=== PATIENT | female | born 1990 | race Hispanic/Latino ===

== ENCOUNTER 2019-05-14 14:15 | Outpatient (RCR) | payer OTHER, SELFPAY ==
[2019-05-12 14:46] LABS: Beta HCG Quantitative 16.63 mIU/ML
== END 2019-08-10 23:59 | disposition home or self-care (01) ==
LOC: ANHLAB 14:15
PROVIDERS: Visit Provider Obstetrics & Gynecology
DX: N91.2 Amenorrhea, unspecified (principal)
CPT/HCPCS: 36415; 84702; 86850; 86900; 86901

== ENCOUNTER 2020-01-24 12:53 | Outpatient (RCR) | payer OTHER, SELFPAY | END 2020-04-21 23:59 | disposition home or self-care (01) | LOC: ANHLAB 12:53 | PROVIDERS: Visit Provider Obstetrics & Gynecology Gynecology | DX: O26.21 Pregnancy care for patient with recurrent pregnancy loss, first trimester (principal); Z3A.00 Weeks of gestation of pregnancy not specified | CPT/HCPCS: 36415; 84702 ==

== ENCOUNTER 2020-01-30 14:18 | Outpatient (CLI) | payer OTHER, SELFPAY ==
--- NOTE | ~2020-01-30 | US_ITS ---
EXAMINATION: US OB <=14 wk fetus w TV DATE: 01/30/2020 15:16 INDICATION: Prior spontaneous . First trimester . TECHNIQUE: Real-time pelvic ultrasound utilizing both a transvaginal and transabdominal probe was pe rformed. The interpreting radiologist was not present for the study. COMPARISON: None. FINDINGS: The uterus measures 8.3 x 4.9 x 6.0 cm. There is an intrauterine gestational sac. A yolk sac is iden tified but no definitive pole yet apparent. The mean sac diameter measures 12.5 mm, which corre lates with an estimated gestational age of 6 weeks and 0 days. The right ovary measures 3.0 x 1.5 x 1.3 cm. The left ovary measures 2.8 x 1.9 x 2.7 cm. 9 x 8 mm lik brien corpus luteum cyst in the left ovary. A few tiny likely follicles at the periphery of the right o vary. Vascular flow is identified in both ovaries on color Doppler. There is no free fluid in the pel vis. IMPRESSION: 1. Single intrauterine gestational sac with single yolk sac but no discernible pole yet apparen t likely due to early stage of . 2. Gestational age by ultrasound of 6 weeks 0 day(s) +/- 4 day(s) with ultrasound estimated date of delivery (JAXON) of 09/24/2020. Reviewed, dictated and finalized at location A. IMPRESSION: 1. Single intrauterine gestational sac with single yolk sac but no discernible pole yet apparent likely due to early stage of . 2. Gestational age by ultrasound of 6 weeks 0 day(s) +/- 4 day(s) with ultraso und estimated date of delivery (JAXON) of 09/24/2020.
== END 2020-01-30 14:19 | disposition home or self-care (01) ==
PROVIDERS: Visit Provider Obstetrics & Gynecology
DX: O26.21 Pregnancy care for patient with recurrent pregnancy loss, first trimester (principal); Z3A.01 Less than 8 weeks gestation of pregnancy
CPT/HCPCS: 76801; 76817

== ENCOUNTER 2020-02-13 10:12 | Outpatient (CLI) | payer OTHER, SELFPAY ==
--- NOTE | ~2020-02-13 | US_ITS ---
EXAMINATION: US OB <= 14 weeks fetus DATE: 02/13/2020 12:54 INDICATION: First trimester viability assessment TECHNIQUE: Real-time pelvic transabdominal and transvaginal ultrasound was performed. COMPARISON: 01/30/2020 FINDINGS: The uterus measures 10.8 x 6 x 5.1 cm. There is an intrauterine gestational sac. A yolk sa c is identified. heart motion is identified measuring 150 beats per minute (bpm) by M-mode Dopp ler. The crown rump length measures 11 mm , which correlates with an estimated gestational age of 7 weeks and 2 day(s) (+/-) 5 day(s). The right ovary measures 2.5 x 1.5 x 1.7 cm. The left ovary measures 3.2 x 2.2 x 2.0 cm. There is nor mal vascular flow in the ovaries. There is no free fluid in the pelvis. IMPRESSION: 1. Live intrauterine with an estimated gestational age of 7 weeks and 2 day(s) (+/-) 5 day( s) and an estimated delivery date of 09/29/2020. Reviewed, dictated and finalized at location B. IMPRESSION: 1. Live intrauterine with an estimated gestational age of 7 weeks and 2 day(s) (+/-) 5 day(s) and an estimated delivery date of 09/29/2020.
== END 2020-02-13 10:13 | disposition home or self-care (01) ==
PROVIDERS: PCP Obstetrics & Gynecology Gynecology; Visit Provider Obstetrics & Gynecology
DX: O36.80X0 Pregnancy with inconclusive fetal viability, not applicable or unspecified (principal); Z3A.01 Less than 8 weeks gestation of pregnancy
CPT/HCPCS: 76801

== ENCOUNTER 2020-08-28 15:30 | Observation (INO) | payer OTHER, SELFPAY ==
[2020-08-28 15:28] VITALS: BP 115/72; PULSE 88; RESP 16; TEMP 36.6; O2SAT 99
[2020-08-28 15:45] VITALS: BP 124/86; PULSE 94
[2020-08-28 16:00] VITALS: BP 115/75; PULSE 92
--- NOTE | 2020-08-28 16:06 | PC.NURSE ---
1600- Discussing with patient history and gathering info on records. Patient states that she sees a nurse at [facility] and is supposed to see a delivering doctor on Wednesday. Patient does not know the last name of the nurse she sees or the name of the doctors office. Patient states she was in too much pain to continue driving to [place] to see her doctor. Patient laying quietly in bed at this time. 1605- Spoke with Dr. Bobo, walk in doctor for OB. NSTand patient symptoms/history reviewed with Dr. Bobo. Patient having irregular contractions with irritability. Reactive NST.
[2020-08-28 16:15] VITALS: BP 112/74; PULSE 81
[2020-08-28 16:24] VITALS: BMI 30.4
--- NOTE | 2020-08-28 16:24 | OBADM ---
This patient, Elina Mendenhall, admitted to the OB room [facility] for observation. Patient/family oriented to hospital policies and general routines including ID bracelet, bed and alarms, visiting hours, pain management, procedures, bathroom and other care routines, personal items, smoking policy, room service/diet, and visiting hours. Patient/Family are encouraged to report perceived risks to care and to ask questions if they do not understand what they are told or what they should do.
--- NOTE | 2020-09-02 10:04 | PM.OBTRLD ---
OB - Triage/Final Diagnosis Visit Information Comments/Additional reasons for admission: I have assessed the risk for this patient, Elinara Claudia Mendenhall, and determined that she would benefit from observation care. Final Diagnosis (1) Pelvic pain affecting : Code(s): O26.899 - Other specified related conditions, unspecified trimester; R10.2 - Pelvic and perineal pain Status: Acute
== END 2020-08-28 16:29 | disposition home or self-care (01) ==
LOC: ANHLDR 15:35 → ANHOBPP 15:37
PROVIDERS: Admitting Provider Obstetrics & Gynecology; PCP Obstetrics & Gynecology Gynecology; Visit Provider Obstetrics & Gynecology
DX: O26.893 Other specified pregnancy related conditions, third trimester (principal); R10.2 Pelvic and perineal pain; Z3A.35 35 weeks gestation of pregnancy
CPT/HCPCS: 59025; G0378; G0379

== ENCOUNTER 2023-09-27 17:04 | Outpatient (CLI) | payer OTHER, SELFPAY ==
--- NOTE | ~2023-09-27 | XR_ITS ---
XR lumbar spine 2-3V 09/27/2023 17:22 Indication: Low back pain for 6 months Procedure: 3 views lumbar spine Comparison: No prior studies for comparison. Findings: Vertebral body heights are maintained. No fracture, subluxation or dislocation. No evidence for spondylolisthesis. No significant disc narrowing. Sacral foramen are symmetric. Impression: 1: No significant abnormality of the lumbar spine. Reviewed, dictated and finalized at location B. Impression: 1: No significant abnormality of the lumbar spine.
== END 2023-09-27 17:05 | disposition home or self-care (01) ==
LOC: ANHIMG 17:05
PROVIDERS: PCP Obstetrics & Gynecology Gynecology; Visit Provider Physician Assistant
DX: M54.50 Low back pain, unspecified (principal)
CPT/HCPCS: 72100

== ENCOUNTER 2023-12-21 16:44 | Emergency (ER) | payer OTHER, SELFPAY ==
--- NOTE | 2023-12-21 16:51 | ED.URI ---
HPI - URI/Sore Throat General Chief Complaint: Urogenital-Female Stated Complaint: Bodyaches/Sore Throat Time Seen by Provider: 12/21/23 16:51 Source: patient, family, RN notes reviewed and old records reviewed Mode of arrival: ambulatory Limitations: no limitations History of Present Illness HPI Narrative: Patient presents with body aches, fatigue, sore throat, runny nose. She reports that symptoms have been present since this morning. She is not taking anything for her symptoms she voices no other concerns or complaints. She denies any shortness breath Related Data Home Medications Medication Instructions Recorded Confirmed No Home Medications 12/21/23 12/21/23 Allergies Allergy/AdvReac Type Severity Reaction Status Date / Time No Known Allergies Allergy Verified 12/21/23 16:46 Review of Systems Review of Systems: All systems reviewed & are unremarkable except as noted in HPI and below Constitutional: Constitutional: Reports no additional constitutional complaints ENT: Reports system reviewed and no additional complaints, except as documented Cardiovascular: Cardiovascular: Reports no additional cardiovascular complaints Respiratory: Respiratory: Reports no additional respiratory complaints Gastrointestinal: Gastrointestinal: Reports no additional gastrointestinal complaints PMFSH Comments At the time of my signature, I reviewed and agree with the nursing past medical, surgical, social, and family history. There is no relevant family history pertinent to the patient complaint. Exam Const: General: cooperative, no acute distress, alert and awake Orientation/consciousness: oriented to person, oriented to place and oriented to time HENMT: Head: normal to inspection Resp: Effort & Inspection: normal respiratory effort and able to speak in complete sentences Auscultation: clear to auscultation bilaterally, no crackles, no rales, no rhonchi and no wheezes Cardio: Palpation: normal PMI Rate: regular rate Rhythm: regular rhythm Heart sounds: S1 normal heart sound present and S2 normal heart sound present Neuro: General: oriented to person, oriented to place and oriented to time Cranial nerves: Yes CN's II-XII intact bilaterally Psych: Appearance: grossly normal Thought process: Normal thought process present Insight: Good insight present (Psych) Judgement: Good judgement present (Psych) Course Course Level of Care: Express Care Visit Vital Signs Vital signs: Vital Signs Temperature 99.1 F 12/21/23 17:00 Pulse Rate 102 H 12/21/23 17:00 Respiratory Rate 18 12/21/23 17:00 Blood Pressure 122/88 12/21/23 17:00 Pulse Oximetry 100 12/21/23 17:00 Oxygen Delivery Room Air 12/21/23 17:00 Temperature 99.1 F 12/21/23 17:00 Pulse Rate 102 H 12/21/23 17:00 Respiratory Rate 18 12/21/23 17:00 Blood Pressure 122/88 12/21/23 17:00 Pulse Oximetry 100 12/21/23 17:00 Oxygen Delivery Room Air 12/21/23 17:00 Reviewed MDM - URI/Sore Throat MDM Narrative Medical decision making narrative: Patient with less than 24 hours of symptoms. Negative COVID, negative flu, negative strep, negative UA. Explained to patient that there is a possibility that she could be positive given that symptoms are so new. We did send a strep culture. Work note for couple of days. Emergency department for new or worse symptoms, follow-up with primary Differential Diagnosis Differential diagnosis: Likely upper respiratory infection, otitis media, sinusitis, viral infection, bronchitis, influenza and pharyngitis Medical Records Attestation: I reviewed the patient's medical records. Lab Data Attestation: I reviewed the patient's lab results. Labs: Lab Results 12/21/23 12/21/23 12/21/23 Range/Units 17:14 17:15 17:22 POC Urine Color Yellow POC Urine Clarity Clear POC Urine pH 7.0 POC Ur Specif [place] 1.015 POC Urine Protein Negative POC Ur Glucose (UA) Ne
[2023-12-21 17:00] VITALS: BP 122/88; PULSE 102; RESP 18; TEMP 37.3; O2SAT 100
[2023-12-21 17:15] LABS: EDSTREPNEGPOS1 Presumptive Negative
[2023-12-21 17:16] LABS: EDUAAPPEAR Clear; EDUABILI Negative; EDUABLOOD Negative; EDUACOLOR1 Yellow; EDUAGLUCOSE Negative; EDUAKETONE Negative; EDUALEUKO Negative; EDUANITRATE Negative; EDUAPROTEIN Negative; EDUASPGRAVITY 1.015; EDUAUROBILI 0.2
== END 2023-12-21 17:40 | disposition home or self-care (01) ==
PROVIDERS: Emergency Provider Nurse Practitioner Family; PCP Physician Assistant
DX: B34.9 Viral infection, unspecified (principal); Z20.822 Contact with and (suspected) exposure to COVID-19
CPT/HCPCS: 81003; 87081; 87426; 87880; 99213; G0463

== ENCOUNTER 2023-12-23 18:29 | Emergency (ER) | payer OTHER, SELFPAY ==
[2023-12-23 18:40] VITALS: BP 132/78; PULSE 80; RESP 20; TEMP 37; O2SAT 99
--- NOTE | 2023-12-23 19:07 | ED.URI ---
HPI - URI/Sore Throat General Chief Complaint: Upper Respiratory Infection Stated Complaint: throat hurts,runny nose Time Seen by Provider: 12/23/23 18:56 Source: patient and RN notes reviewed Mode of arrival: ambulatory Limitations: no limitations History of Present Illness HPI Narrative: Patient presents today complaining of a 2 day history of sore throat and nasal congestion. She currently rates her pain 6/10. She took a dose of amoxicillin that is not prescribed to her this morning. Patient was seen here at [facility] 2 days ago with a negative rapid strep. Culture is pending. Patient has tried no [id number] treatment prior to arrival. Related Data Home Medications Medication Instructions Recorded Confirmed No Home Medications 12/21/23 12/21/23 Allergies Allergy/AdvReac Type Severity Reaction Status Date / Time No Known Allergies Allergy Verified 12/21/23 16:46 Review of Systems Review of Systems: CONSTITUTIONAL: Denies body aches, fever, chills, or sweats. EYES: Denies visual changes, redness, or discharge. ENT: Denies rhinorrhea, or otalgia.+ sore throat, congestion CARDIOVASCULAR: Denies chest pain, palpitations, or edema. RESPIRATORY: Denies cough or dyspnea. GASTROINTESTINAL: Denies abdominal pain, nausea, vomiting, or diarrhea. GENITOURINARY: Denies dysuria or hematuria. SKIN: Denies rash, itching, or wounds. MUSCULOSKELETAL: Denies back pain, joint pain, or myalgia. NEUROLOGIC: Denies headache, numbness, tingling, or weakness. PSYCH: Denies depression or anxiety. PMFSH Comments At time of signature, I have reviewed and agree with nursing past medical, surgical, social and family history unless otherwise noted. Please see nursing chart for further information. There is no relevant family history pertinent to the presenting complaint Exam Narrative: GENERAL: Well-appearing, well-nourished, and in no acute distress. HEAD: Normocephalic, atraumatic. EYES: EOMI. No redness or drainage. Conjunctivae normal. ENT: Mucous membranes pink and moist. Nares mildly congested. No rhinorrhea. TMs normal bilaterally. Throat mildly erythematous without edema or exudate. Uvula midline. NECK: Normal AROM. Supple. No lymphadenopathy. CHEST: No respiratory distress. Clear to auscultation. HEART: Regular rate and rhythm. No murmur appreciated. EXTREMITIES: Normal range of motion. No edema. SKIN: Warm, dry, no rash. Capillary refill normal. Normal skin turgor. NEURO: No focal deficits. Alert and oriented x3. Gait steady. PSYCH: Normal affect. No signs of depression or anxiety. Course Course Level of Care: Express Care Visit Vital Signs Vital signs: Vital Signs Temperature 98.6 F 12/23/23 18:40 Pulse Rate 80 12/23/23 18:40 Respiratory Rate 20 12/23/23 18:40 Blood Pressure 132/78 12/23/23 18:40 Pulse Oximetry 99 12/23/23 18:40 Oxygen Delivery Room Air 12/23/23 18:40 Temperature 98.6 F 12/23/23 18:40 Pulse Rate 80 12/23/23 18:40 Respiratory Rate 20 12/23/23 18:40 Blood Pressure 132/78 12/23/23 18:40 Pulse Oximetry 99 12/23/23 18:40 Oxygen Delivery Room Air 12/23/23 18:40 Reviewed MDM - URI/Sore Throat MDM Narrative Medical decision making narrative: Discussed with patient the culture likely be back tomorrow and she will be notified of any positive results. Recommend starting some [id number] medication for symptom control. ED precautions given Differential Diagnosis Differential diagnosis: Likely upper respiratory infection, viral infection, pharyngitis and other (Strep throat) Critical Care Time Critical Care Time Critical Care Time: No Discharge Plan Discharge Clinical Impression: Pharyngitis Patient Disposition: Home, Self-Care Condition: Stable Instructions: Pharyngitis (ED) Additional Instructions: Your strep culture results should come back tomorrow in the afternoon, and you will be notified of any pos
== END 2023-12-23 19:09 | disposition home or self-care (01) ==
PROVIDERS: Emergency Provider Nurse Practitioner; PCP Physician Assistant
DX: J02.9 Acute pharyngitis, unspecified (principal)
CPT/HCPCS: 99211; G0463

== ENCOUNTER 2024-09-14 13:35 | Emergency (ER) | payer MEDICAID, SELFPAY ==
--- NOTE | 2024-09-14 13:37 | ED_ITS ---
HPI - Female Genitourinary General Chief complaint: Urogenital-Female Stated complaint: urinary issue Time Seen by Provider: 09/14/24 13:37 Source: patient Mode of arrival: ambulatory Limitations: no limitations History of Present Illness HPI Narrative: Elina is a 34-year-old female patient presenting to the clinic today with complaints of burning with urination x1 week. She reports she has tried drinking some cranberry juice and this has helped. Denies any fevers, chills, back pain, or abdomen pain. No nausea or vomiting Related Data Allergies Allergy/AdvReac Type Severity Reaction Status Date / Time No Known Allergies Allergy Verified 09/14/24 13:40 Review of Systems Review of Systems: Pertinent positives per HPI. Patient denies any fever, chills, rash, headache, visual changes, dizziness, cough, runny nose, sore throat, shortness of breath, chest pain, palpitations, nausea, vomiting, diarrhea, constipation, abdominal pain PMFSH Comments At the time of my signature, I reviewed and agree with the nursing past medical, surgical, social, and family history. There is no relevant family history pertinent to the patient complaint. Exam Narrative: General: Well-developed, well nourished, in no apparent distress. Head: Normocephalic, atraumatic. Cardio: Regular rate and rhythm, s1 and s2 normal, no murmur appreciated. Resp: Clear to auscultation bilaterally, no rhonchi, rales, wheezing or rubs. Abdomen: Soft, pliable, bowel sounds present in all quadrants, non-tender to palpation, no organomegly, no CVAT tenderness. Course Course Emergency Course: Portions of this record may have been created with voice recognition software. Level of Care: Express Care Visit Vital Signs Vital signs: Vital Signs Temperature 36.6 C 09/14/24 13:50 Pulse Rate 69 09/14/24 13:50 Respiratory Rate 14 09/14/24 13:50 Blood Pressure 120/80 09/14/24 13:50 Pulse Oximetry 100 09/14/24 13:50 Temperature 36.6 C 09/14/24 13:50 Pulse Rate 69 09/14/24 13:50 Respiratory Rate 14 09/14/24 13:50 Blood Pressure 120/80 09/14/24 13:50 Pulse Oximetry 100 09/14/24 13:50 Vital signs reviewed MDM - Female Genitourinary MDM Narrative Medical decision making narrative: At the time of visit patient is resting comfortably on the exam table. Patient appears to be nontoxic. Labs: Urinalysis is positive for blood and leukocytes. We will send urine for culture. Plan: I suspect patient has UTI. Prescription for Macrobid was sent to the pharmacy. Supportive measures were discussed with the patient and they voiced understanding discharge instructions and agrees to treatment plan. Return precautions reviewed Differential Diagnosis Differential diagnosis: Likely urinary tract infection, bacterial vaginosis, trichomoniasis, cervicitis, ovarian cyst, vaginitis, ruptured ovarian cyst, cyst of Bartholin's gland, cystitis and dysmenorrhea Lab Data Labs: Lab Results 09/14/24 Range/Units 13:50 POC Urine Color Yellow POC Urine Clarity Clear POC Urine pH 6.5 POC Ur Specif [place] 1.015 POC Urine Protein Negative (Negative) POC Ur Glucose (UA) Negative (Negative) POC Urine Ketones Negative (Negative) POC Urine Blood 1+ (Negative) POC Urine Nitrite Negative (Negative) POC Urine Bilirubin Negative (Negative) POC Urine Urobilinogen 0.2 POC U Leukocyte Esteras Trace (Negative) Discharge Plan Discharge Clinical Impression: Urinary tract infection Qualifiers: Urinary tract infection type: acute cystitis Hematuria presence: with hematuria Qualified Code(s): N30.01 - Acute cystitis with hematuria Patient Disposition: Home Condition: Stable Instructions: Antibiotic Form, Urinary Tract Infection in Women (ED) Additional Instructions: Urinalysis positive for leukocytes and blood. We will send urine for culture Take Macrobid as prescribed Increase fluids and stay well hydrated Wipe front to back. May use wet wipes. Avoid tub baths If sexually active- pee before and after intercourse. Wear cotton panties Avoid tight clothing up against the genitals Follow up with your PCP in 1 week if symptoms persist. Patient Language: Beninese Prescriptions: New nitrofurantoin monohyd/m-cryst [Macrobid] 100 mg capsule 100 mg PO Q12H 5 Days Qty: 10 0RF Rx Instructions: must administer with a meal/food Follow-up/Referrals: Tamika,AZEEM Wang [Primary Care Provider] - Time of Disposition: 13:55 Quality NIHSS Nursing Documentation ED NIHSS nursing documentation: reviewed/agree
[2024-09-14 13:50] VITALS: BP 120/80; PULSE 69; RESP 14; TEMP 36.6; O2SAT 100
[2024-09-14 13:57] LABS: EDUAAPPEAR Clear; EDUABILI Negative (Negative); EDUABLOOD 1+ (Negative); EDUACOLOR1 Yellow; EDUAGLUCOSE Negative (Negative); EDUAKETONE Negative (Negative); EDUALEUKO Trace (Negative); EDUANITRATE Negative (Negative); EDUAPH 6.5; EDUAPROTEIN Negative (Negative); EDUASPGRAVITY 1.015; EDUAUROBILI 0.2
== END 2024-09-14 13:57 | disposition home or self-care (01) ==
PROVIDERS: Emergency Provider Nurse Practitioner Family; PCP Physician Assistant
DX: N30.01 Acute cystitis with hematuria (principal)
CPT/HCPCS: 81003; 87086; 87186; 99213; G0463

== ENCOUNTER 2025-03-09 15:30 | Outpatient (RCR) | payer MEDICAID, OTHER, SELFPAY ==
--- NOTE | 2025-02-15 16:26 | OPREHPOC ---
Outpatient Therapy Plan of Care This is a Multidisciplinary Plan of Care that may contain components documented by all disciplines (PT, OT, and ST.) PT Problem 1 PT Problem #1 Knowledge Deficit PT Goal 1 Goal / Goal Update [place] with HEP Target Visit 4 PT Goal 2 Goal / Goal Update 1. Report no pain greater than 2/10 consistently for 2 weeks 2. Report 50% reduction in frequency of headaches Target Visit 6 PT Problem 2 PT Problem #2 Impaired Range of Motion PT Goal 1 Goal / Goal Update 1. Improve sindi cervical rotation to 70 degrees 2. Demonstrate 45 degrees of cervical flexion and extension Target Visit 8 PT Problem 3 PT Problem #3 Impaired Strength PT Goal 1 Goal / Goal Update Improve sindi periscapular strength to 4/5 to improve postural positioning of cervcal spine Target Visit 8
--- NOTE | 2025-02-15 16:27 | PTOPEVAL1 ---
Assessment and note entered by Praful Porter, PT Evaluation Information Assessment Status Evaluation ICD-10 Condition Codes (PT) Cervicalgia M54.2 Onset 2023 Subjective Information Report that majority of her neck issues start in the morning. They occasionally will get better throughout the day but sometimes get worse. Denies any sleeping changes in the past year. Denies sinus congestion at night. Pain is bilateral. Denies hearing or visual disturbances. Will occasionally have nausea. She takes Ibuprophen for headaches 600 mg. Denies any radicular symptoms. She is typically a stomach sleeper. Reported Pain Level Pain Score 3: Self Report Assessment PT Clinical Summary Patient presents with signs ad symptoms consistent with cervicogenic pain. Symptoms are wavering and dependent on position indicating that kinesiological problems are present. 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 Plan of Care Interventions Electrical Stimulation,Manual Therapy,Neuro Re- education,Therapeutic Activities,Therapeutic Exercise PT Services Indicated Yes Treatment Frequency and 2x/week for 8 visits Duration These treatments will address the objective and functional deficits as defined above. The patient will be advanced safely and appropriately in order for the patient to progress towards his/her prior level of function. Additional exercises will be introduced and as well as a comprehensive home exercise program upon discharge, if needed, ?to ensure carryover of functional gains achieved in the clinic. This treatment plan has been reviewed and agreement upon by the patient.
--- NOTE | 2025-03-02 13:56 | PCPTNOTE ---
Pt had in the family this week and has forgot to call. Should be good next week.
--- NOTE | 2025-03-07 16:01 | PCPTNOTE ---
Called pt at 4:00 to remind her of her 3:34 appt today. This is her 2 nd NC/NS. I requested that she call and cancel if she no longer requires our services. FREEMAN
--- NOTE | 2025-03-09 16:10 | PCPTNOTE ---
Pt NS appt for third time today.
--- NOTE | 2025-03-14 15:59 | PCPTNOTE ---
Left another [facility] for pt. I informed her of our N/S policy (4). She will be removed from schedule at this time. Shoulder she need our services in the future ,please call. FREEMAN
--- NOTE | 2025-04-03 11:37 | PTOPDC ---
Assessment and note entered by Mara Salazar, PT Assessment Status Discharge - Pt Not Present ICD-10 Condition Codes (PT) Cervicalgia M54.2 Onset 2023 Subjective Information pt was not seen this date. Assessment PT Clinical Summary Pt received the PT evaluation on 02-15-25 and has not returned for any treatments. She did not show for 4 scheduled appointments. Discharge PT due to not attending. The goals were not addressed. Plan of Care PT Services Indicated No
== END 2025-04-03 12:36 | disposition home or self-care (01) ==
LOC: ANHPT 15:30
PROVIDERS: PCP Physician Assistant; Visit Provider Physician Assistant
DX: M54.2 Cervicalgia (principal)
CPT/HCPCS: 97110; 97140; 97161

== ENCOUNTER 2025-04-13 13:45 | Emergency (ER) | payer OTHER, SELFPAY ==
[2025-04-13 13:57] VITALS: BP 111/63; PULSE 77; RESP 18; TEMP 37; O2SAT 100
[2025-04-13 14:14] LABS: EDSTREPNEGPOS1 Negative (Negative)
--- NOTE | 2025-04-13 14:25 | ED.URI ---
HPI - URI/Sore Throat General Chief Complaint: Upper Respiratory Infection Stated Complaint: Sore Throat Time Seen by Provider: 04/13/25 14:10 Source: patient and RN notes reviewed Mode of arrival: ambulatory Limitations: no limitations History of Present Illness HPI Narrative: 35-year-old female presents Express Care complaining of upper respiratory symptoms since today. Patient reports congestion, sore throat, ear pain, and headache. Patient denies any other upper respiratory symptoms, cough, fevers, eczema chills, nausea vomiting, diarrhea, chest pain, difficulty breathing, abdominal pain, or any other symptoms. Patient has not taken anything [id number] to help with symptoms. Patient denies any significant past medical problems. Related Data Allergies Allergy/AdvReac Type Severity Reaction Status Date / Time No Known Allergies Allergy Verified 04/13/25 13:54 Review of Systems Review of Systems: CONSTITUTIONAL: Denies fever, body aches, chills, or sweats. EYES: Denies visual changes, redness, or discharge. ENT: Denies rhinorrhea. Positive for congestion, sore throat, hand otalgia. Take that CARDIOVASCULAR: Denies chest pain, palpitations, or edema. RESPIRATORY: Denies cough, wheezing, or dyspnea. GASTROINTESTINAL: Denies abdominal pain, nausea, vomiting, or diarrhea. GENITOURINARY: Denies dysuria or hematuria. SKIN: Denies rash or itching. MUSCULOSKELETAL: Denies back pain, joint pain, or myalgia. NEUROLOGIC: Denies headache, numbness, or weakness. PSYCHIATRIC: Denies anxiety or depression. All other systems reviewed are negative, except as documented in HPI. PMFSH Comments At the time of my signature, I reviewed and agree with the nursing past medical, surgical, social, and family history. There is no relevant family history pertinent to the patient complaint. Exam Narrative: GENERAL: This is a well-nourished, well-developed adult, in no apparent distress. They are non ill-appearing, nontoxic appearing. HEAD: normocephalic, atraumatic. EYES: Sclera clear/white. Conjunctiva normal. Vision is grossly intact. Extraocular movements intact EARS: External ears normal, auditory canals clear and without drainage, TMs normal without perforation. Right effusion present. Hearing grossly intact. NOSE: External nose normal with no obvious nasal discharge, nasal turbinates erythematous no exudate, no rhinorrhea. THROAT: Mucous membranes moist, posterior pharynx erythematous, without exudate. Uvula midline. Postnasal drip present. NECK: Neck supple, non-tender without lymphadenopathy, masses or thyromegaly. CARDIOVASCULAR: Regular rate and rhythm without murmurs, gallops, or rubs. RESPIRATORY: Clear to auscultation. Breath sounds equal bilaterally. No wheezes, rales, or rhonchi. SKIN: warm, Dry, intact with no suspicious lesions or rash, good texture and turgor. NEURO: awake, alert, and oriented to person, place and time. There were no obvious focal neurologic abnormalities. EXTREMITIES: No joint tenderness, effusion, or edema noted. BACK: Nontender without deformity. Course Course Emergency Course: Portions of this record may have been created with voice recognition software Level of Care: Express Care Visit Vital Signs Vital signs: Vital Signs Temperature 98.6 F 04/13/25 13:57 Pulse Rate 77 04/13/25 13:57 Respiratory Rate 18 04/13/25 13:57 Blood Pressure 111/63 04/13/25 13:57 Pulse Oximetry 100 04/13/25 13:57 Oxygen Delivery Room Air 04/13/25 13:57 Temperature 98.6 F 04/13/25 13:57 Pulse Rate 77 04/13/25 13:57 Respiratory Rate 18 04/13/25 13:57 Blood Pressure 111/63 04/13/25 13:57 Pulse Oximetry 100 04/13/25 13:57 Oxygen Delivery Room Air 04/13/25 13:57 Reviewed MDM - URI/Sore Throat MDM Narrative Medical decision making narrative: Rapid strep negative. A throat culture is pending. Symptoms likely viral in etiology. Prescribe a course of Flonase for congestion. Discussed supportive care. Discussed physical exam findings. Advised supportive measures and signs/symptoms to go to the ER. Pt is appropriate for outpt treatment and f/u. Differential Diagnosis Differential diagnosis: Likely upper respiratory infection, sinusitis, viral infection and pharyngitis Lab Data Attestation: I reviewed the patient's lab results. Labs: Lab Results 04/13/25 Range/Units 14:12 POC Grp A Strep Screen Negative (Negative) Critical Care Time Critical Care Time Critical Care Time: No Discharge Plan Discharge Clinical Impression: Upper respiratory infection Qualifiers: URI type: unspecified viral URI Qualified Code(s): J06.9 - Acute upper respiratory infection, unspecified Patient Disposition: Home Condition: Stable Instructions: Upper Respiratory Infection (ED) Additional Instructions: Your rapid strep swab was negative today at [facility]. You will be notified in a few days if the culture comes back positive for strep, and appropriate antibiotics will be called in for you at that time. Your symptoms are likely due to a viral illness, which is not treated with antibiotics. Viral symptoms can be present for up to 7-10 days. Take Tylenol or ibuprofen as needed for fever or pain. Follow the instructions on the bottle. If you take DayQuil or NyQuil do not take additional Tylenol as this medication or any contains Tylenol in it. Supplement with vitamins for immune support such as vitamin-D, vitamin-C, B vitamins, and zinc. Use of Flonase as directed. Rest and stay hydrated. Follow up with your PCP in 5-7 days if symptoms are not improving. Go to the ER immediately if you developed chest pains, vomiting, fevers, worsening symptoms, difficulty breathing or swallowing, or any serious concerns. Patient Language: Swedish Prescriptions: New fluticasone propionate [Flonase Allergy Relief] 50 mcg/actuation spray,suspension 2 spray intranasal DAILY Qty: 16 0RF Rx Instructions: administer into each nostril Follow-up/Referrals: Tamika,AZEEM Wang [Primary Care Provider, Family Practice] Stand Alone Forms: Work/School Release IP Time of Disposition: 14:23
== END 2025-04-13 14:34 | disposition home or self-care (01) ==
PROVIDERS: PCP Physician Assistant
DX: J06.9 Acute upper respiratory infection, unspecified (principal)
CPT/HCPCS: 87081; 87880; 99213; G0463

== ENCOUNTER 2025-04-25 12:50 | Emergency (ER) | payer OTHER, SELFPAY ==
--- NOTE | 2025-04-25 12:52 | ED_ITS ---
HPI - General Adult General Chief complaint: Urogenital-Female Stated complaint: urinary irritation Source: patient Mode of arrival: ambulatory Limitations: no limitations History of Present Illness HPI narrative: Pt is a 35 y/o female presenting with c/o dysuria x 1 week. no concern for STI or . Reports hx of similar sx when dx with UTI. No tx initiated [employer]. No additional complaints. Related Data Allergies Allergy/AdvReac Type Severity Reaction Status Date / Time No Known Allergies Allergy Verified 04/25/25 12:51 Review of Systems Review of Systems: CONSTITUTIONAL: Denies body aches, fever, chills, or sweats. EYES: Denies visual changes, redness, or discharge. ENT: Denies rhinorrhea, congestion, sore throat, or otalgia. CARDIOVASCULAR: Denies chest pain, palpitations, or edema. RESPIRATORY: Denies cough or dyspnea. GASTROINTESTINAL: Denies abdominal pain, nausea, vomiting, or diarrhea. GENITOURINARY: Reports dysuria denies hematuria. SKIN: Denies rash, itching, or wounds. MUSCULOSKELETAL: Denies back pain, joint pain, or myalgia. NEUROLOGIC: Denies headache, numbness, tingling, or weakness. PSYCH: Denies depression or anxiety. All systems reviewed & are unremarkable except as noted in HPI and below Exam Narrative: GENERAL: Well-appearing, well-nourished, and in no acute distress. HEAD: Normocephalic, atraumatic. ENT: Mucous membranes pink and moist. NECK: Normal AROM. Supple. No lymphadenopathy. CHEST: No respiratory distress. Clear to auscultation. HEART: Regular rate and rhythm. No murmur appreciated. Normal peripheral pulses. ABDOMEN: Soft, nontender, nondistended, normal active bowel sounds. No CVAT SKIN: Warm, dry, no rash. Capillary refill normal. Normal skin turgor. NEURO: No focal deficits. Alert and oriented x3. Gait steady. PSYCH: Normal affect. No signs of depression or anxiety. Course Course Level of Care: Express Care Visit Vital Signs Vital signs: Vital Signs Temperature 99.0 F 04/25/25 12:58 Pulse Rate 70 04/25/25 12:58 Respiratory Rate 16 04/25/25 12:58 Blood Pressure 137/85 04/25/25 12:58 Pulse Oximetry 100 04/25/25 12:58 Oxygen Delivery Room Air 04/25/25 12:58 Temperature 99.0 F 04/25/25 12:58 Pulse Rate 70 04/25/25 12:58 Respiratory Rate 16 04/25/25 12:58 Blood Pressure 137/85 04/25/25 12:58 Pulse Oximetry 100 04/25/25 12:58 Oxygen Delivery Room Air 04/25/25 12:58 Medical Decision Making Vital Signs Vital Signs: Vital Signs Temperature 99.0 F 04/25/25 12:58 Pulse Rate 70 04/25/25 12:58 Respiratory Rate 16 04/25/25 12:58 Blood Pressure 137/85 04/25/25 12:58 Pulse Oximetry 100 04/25/25 12:58 Oxygen Delivery Room Air 04/25/25 12:58 Temperature 99.0 F 04/25/25 12:58 Pulse Rate 70 04/25/25 12:58 Respiratory Rate 16 04/25/25 12:58 Blood Pressure 137/85 04/25/25 12:58 Pulse Oximetry 100 04/25/25 12:58 Oxygen Delivery Room Air 04/25/25 12:58 Lab Data Lab results reviewed: Yes I reviewed the patient's lab results. Labs: Lab Results 04/25/25 Range/Units 12:59 POC Urine Color Yellow POC Urine Clarity Cloudy POC Urine pH 6.5 POC Ur Specif [place] 1.015 POC Urine Protein Negative (Negative) POC Ur Glucose (UA) Negative (Negative) POC Urine Ketones Negative (Negative) POC Urine Blood Trace (Negative) POC Urine Nitrite Positive (Negative) POC Urine Bilirubin Negative (Negative) POC Urine Urobilinogen 0.2 POC U Leukocyte Esteras 1+ (Negative) POC Urine HCG, Qual Negative (Negative) Discharge Plan Discharge Clinical Impression: Dysuria, Elevated blood pressure reading in office without diagnosis of hypertension Patient Disposition: Home Condition: Stable Instructions: Antibiotic Form, Dysuria (ED) Patient Language: Armenian Prescriptions: New nitrofurantoin monohyd/m-cryst [Macrobid] 100 mg capsule 100 mg PO Q12H 5 Days Qty: 10 0RF Rx Instructions: must administer with a meal/food No Action fluticasone propionate [Flonase Allergy Relief] 50 mcg/actuation spray,suspension 2 spray intranasal DAILY Qty: 16 0RF Rx Instructions: administer into each nostril Follow-up/Referrals: PHYSICIAN,[employer]ER [Primary Care Provider, Internal Medicine] - 04/26/25 Time of Disposition: 13:12
[2025-04-25 12:58] VITALS: BP 137/85; PULSE 70; RESP 16; TEMP 37.2; O2SAT 100
[2025-04-25 13:05] LABS: EDUAAPPEAR Cloudy; EDUABILI Negative (Negative); EDUABLOOD Trace (Negative); EDUACOLOR1 Yellow; EDUAGLUCOSE Negative (Negative); EDUAKETONE Negative (Negative); EDUALEUKO 1+ (Negative); EDUANITRATE Positive (Negative); EDUAPH 6.5; EDUAPROTEIN Negative (Negative); EDUASPGRAVITY 1.015; EDUAUROBILI 0.2
[2025-04-25 13:19] LABS: BEDSIDEPREGUCG Negative (Negative)
== END 2025-04-25 13:16 | disposition home or self-care (01) ==
PROVIDERS: Emergency Provider Registered Nurse
DX: R30.0 Dysuria (principal); R03.0 Elevated blood-pressure reading, without diagnosis of hypertension
CPT/HCPCS: 81003; 81025; 87077; 87086; 87186; 99213; G0463